=== PATIENT | male | born 1980 | race Two or more races ===

== ENCOUNTER 2016-08-21 15:15 | Emergency (ER) | payer SELFPAY ==
[~2016-08-21] VITALS: Ht 152.4 cm; Wt 59.0 kg
[2016-08-21 15:25] VITALS: BP 118/75
[2016-08-21] MEDS ORDERED: DIPHTH,PERTUSS(ACELL),TET TOX 0.5 ML DISP.SYRIN. VAX IM ONE (15:45)
[2016-08-21] MEDS ORDERED: SULF1TAB24 PO (16:04)
[2016-08-21] MEDS ORDERED: MUPI15CR TP (16:04)
[2016-08-21] MEDS ORDERED: CEPH500C PO (16:04)
--- NOTE | 2016-08-21 16:04 | PHYS DOC ---
Past Medical History Past Medical History: No Pertinent History Past Surgical History: No Surgical History Alcohol Use: None Drug Use: None Adult General Chief Complaint Chief Complaint: SKIN PROBLEM HPI HPI Patient is a 36 year old Maltese-speaking male who presents today with infected ingrown has on his groin region for week. Patient is in the ED with the who is acting as bilingual interpreter for Maltese. Review of Systems Review of Systems Constitutional: Denies fever or chills [] Eyes: Denies change in visual acuity, redness, or eye pain [] Musculoskeletal: Denies back pain or joint pain [] Integument: Infected ingrown hairs to the groin Neurologic: Denies headache, focal weakness or sensory changes [] Endocrine: Denies polyuria or polydipsia [] Current Medications Current Medications Current Medications Medications (Trade) Dose Ordered Sig/Faiza Start Time Stop Time Status Last Admin Dose Admin Diphtheria/ Tetanus/Acell Pertussis (Boostrix) 0.5 ml ONCE ONCE 08/21/16 15:45 08/21/16 15:46 DC Allergies Allergies Allergies Coded Allergies Type Severity Reaction Last Updated Verified No Known Drug Allergies 08/21/16 No Physical Exam Physical Exam Constitutional: Well developed, well nourished, no acute distress, non-toxic appearance. [] HENT: Normocephalic, atraumatic, bilateral external ears normal, oropharynx moist, no oral exudates, nose normal. [] Skin: Scrotum with hyperpigmentation. Scattered areas of cellulitis on the groin region consistent ingrown hairs Back: No tenderness, no CVA tenderness. [] Extremities: No tenderness, no cyanosis, no clubbing, ROM intact, no edema. [] Neurologic: Alert and oriented X 3, normal motor function, normal sensory function, no focal deficits noted. [] Psychologic: Affect normal, judgement normal, mood normal. [] Current Patient Data Vital Signs Vital Signs Date Time Temp Pulse Resp B/P (MAP) Pulse Ox O2 Delivery O2 Flow Rate FiO2 08/21/16 15:25 98.2 73 18 98 Room Air 98.2 EKG EKG [] Radiology/Procedures Radiology/Procedures [] Course & Med Decision Making Course & Med Decision Making Pertinent Labs and Imaging studies reviewed. (See chart for details) Patient has infected ingrown hairs on his scrotum. He was given tetanus in the ED. His was evaluated for the same complaint and the is on cephalexin , Bactrim and Bactroban. Patient was given some prescriptions. Instructed to follow-up with her own PCP as soon as possible. Valarie Disclaimer Valarie Disclaimer This electronic medical record was generated, in whole or in part, using a voice recognition dictation system. Departure Departure Impression: Primary Impression: Cellulitis of right groin Additional Impression: Ingrown hair Disposition: HOME, SELF-CARE Condition: STABLE Referrals: NO PCP (PCP) IKER LONG MD Follow-up with the provided shore worker for hyperpigmentation. Patient Instructions: Cellulitis, Ingrown Hair Additional Instructions: You were seen for infected ingrown hairs. Do not shave for the next 10 days. Avoid using straight razors for shaving. Keep the affected area clean and dry. Complete your antibiotics. Scripts Cephalexin (CEPHALEXIN) 500 Mg Capsule 1 CAP PO QID, #40 CAP Prov: GONZÁLEZ MURRAY APRN 08/21/16 Sulfamethoxazole/Trimethoprim (BACTRIM DS TABLET) 1 Each Tablet 1 TAB PO BID, #20 TAB Prov: GONZÁLEZ MURRAY APRN 08/21/16 Mupirocin Calcium (BACTROBAN CREAM) 15 Gm Cream..g. 1 ABI TP TID, #30 GM Prov: GONZÁLEZ MURRAY APRN 08/21/16 Problem Qualifiers GONZÁLEZ MURRAY APRN August 21, 2016 16:04
== END 2016-08-21 16:25 | disposition home or self-care (01) ==
LOC: ER 15:15
DX: L03.314 Cellulitis of groin (principal); L73.1 Pseudofolliculitis barbae
CPT/HCPCS: 90471; 90715; 99283-25